=== PATIENT | male | born 1990 | race Caucasian/White ===

== ENCOUNTER 2017-12-20 05:30 | Emergency (ER) | payer MEDICAID, OTHER ==
[~2017-12-20] VITALS: Ht 190.5 cm; Wt 83.0 kg
[2017-12-20] MEDS ORDERED: HYDROcodone/APAP 7.5 MG/325 MG (LORTAB, LORCET PLUS) TABLET PO STA (05:43)
[2017-12-20] MEDS ORDERED: AUGMENTIN 875 MG TAB (AMOXICILLIN/CLAVULANATE) PO STA (05:43)
[2017-12-20] MEDS ORDERED: IBUPROFEN 800 MG (MOTRIN) TAB PO STA (05:43)
--- NOTE | 2017-12-20 05:49 | ED General ---
General Chief Complaint: Bite-Animal/Human/Insect Stated Complaint: DOG BITE Source of Information: Patient Exam Limitations: No Limitations History of Present Illness Date Seen by Provider: Dec 20, 2017 Time Seen by Provider: 05:38 Initial Comments Here with report of dog bite to the right arm and hand that occurred last night at his home in [place]. The dog was his dog and that dog is up-to-date on shots. States that it did not hurt significantly at that time so he went ahead and drove down here to his mother's. He will have this morning and it was hurting much worse. He did clean the wounds at the time of injury and cover them with Band-Aids. Reports that he has swelling to his hand and is worried that he has a fracture in the mid hand due to the swelling and the pain. Timing/Duration: Other (approximately 7-8 hours ago) Severity: Moderate Modifying Factors: improves with Immobilization; worse with Medication Associated Systoms: No Fever/Chills, No Rash Allergies and Home Medications Allergies Coded Allergies: tramadol (Verified Allergy, Unknown, 12/20/17) Home Medications Amoxicillin/Potassium Clav 1 Each Tablet, 1 EACH PO BID Prescribed by: EARLINE SENA on 12/20/17 0551 Hydrocodone Bit/Acetaminophen 1 Tab Tab, 1-2 EACH PO Q6H PRN for PAIN-MODERATE Prescribed by: EARLINE SENA on 12/20/17 0551 Patient Home Medication List Home Medication List Reviewed: Yes Review of Systems Constitutional: see HPI; No chills, No fever Respiratory: no symptoms reported Cardiovascular: no symptoms reported Musculoskeletal: see HPI, joint pain, joint swelling, muscle pain, muscle stiffness Skin: change in color, lesions, other (multiple puncture wounds and abrasions to the right hand and forearm on both dorsal and volar surface) Psychiatric/Neurological: No Symptoms Reported Past Kjcivmh-Ivyfxs-Ntlvji Hx Past Med/Social Hx: Reviewed Nursing Past Med/Soc Hx Patient Social History Alcohol Use: Occasionally Uses Recreational Drug Use: No Smoking Status: Current Everyday Smoker Type Used: Cigarettes Recent Foreign Travel: No Contact w/Someone Who Travel: No Past Medical History Surgeries: No Respiratory: No Cardiac: No Neurological: No Genitourinary: No Gastrointestinal: No Musculoskeletal: No Endocrine: No HEENT: No Family Medical History Reviewed Nursing Family Hx No Pertinent Family Hx Physical Exam Vital Signs Vital Signs - First Documented 12/20/17 05:35 Temp 97.8 Pulse 92 Resp 18 B/P (MAP) 126/78 (94) Pulse Ox 99 O2 Delivery Room Air Capillary Refill : General Appearance: WD/WN, Mild Distress (pain) Neck: Full Range of Motion, Non Tender Respiratory: Lungs Clear, Normal Breath Sounds Cardiovascular: Regular Rate, Rhythm, No Murmur Extremity: Swelling (right distal forearm and hand), Other (pain with range of motion of right hand and fingers with swelling noted to the right hand.) Neurologic/Psychiatric: Alert, Oriented x3, No Motor/Sensory Deficits Skin: Warm/Dry, Other (14 puncture wounds to the right forearm and hand on both dorsal and volar surface. Does not include fingers. Small laceration/ tear to the palm of the hand noted. Multiple abrasions/scratches noted in the area of concern.) Progress/Results/Core Measures Suspected Sepsis SIRS Temperature: Pulse: Respiratory Rate: Blood Pressure / Mean: Results/Orders My Orders Orders - EARLINE SENA MD Hand, Right, 3 Views (12/20/17 05:43) Hydrocodone/Apap 7.5/325 Tab (Lortab 7. (12/20/17 05:43) Ibuprofen Tablet (Motrin Tablet) (12/20/17 05:43) Amoxicillin/Clavulanate Tablet (Augmenti (12/20/17 05:43) Vital Signs/I&O 12/20/17 05:35 Temp 97.8 Pulse 92 Resp 18 B/P (MAP) 126/78 (94) Pulse Ox 99 O2 Delivery Room Air Capillary Refill : Progress Note : Progress Note Seen and evaluated. X-ray right hand ordered. Hydrocodone 7.5/325, ibuprofen 800 mg and Augmentin 875 mg tablets ordered. Monitor patient. 0610: No acute fractures. Discharged home with return precautions. Patient verbalize understanding instructions and agreement with plan. We did give Colles' splint for comfort. Wounds cleaned and dressed by nursing. Diagnostic Imaging Diagonstic Imaging: Xray Plain Films/CT/US/NM/MRI: hand Comments No acute fractures on 3 view x-ray of right hand Reviewed: Reviewed by Me Departure Impression Primary Impression: Dog bite Qualified Codes: W54.0XXA - Bitten by dog, initial encounter Disposition: 01 HOME, SELF-CARE Condition: Stable Departure-Patient Inst. Decision time for Depature: 05:49 Referrals: NO,LOCAL PHYSICIAN (PCP/Family) Primary Care Physician Patient Instructions: Animal Bites (DC) Add. Discharge Instructions: All discharge instructions reviewed with patient and/or family. Voiced understanding. Use antibiotic ointment and Band-Aid to wounds twice daily for the next several days and then as needed. Take medications as directed. You may take ibuprofen 800 mg every 8 hours as needed for pain. Follow-up with your Dr. in a few days for recheck. Return for worse pain, fever, vomiting, red streaks up the arm or hand, foul-smelling drainage or other concerns as needed. Scripts Hydrocodone Bit/Acetaminophen (Hydrocodone/Acetaminophen 5/325mg Tablet) 1 Tab Tab 1-2 EACH PO Q6H PRN for PAIN-MODERATE, #12 TAB 0 Refills Prov: EARLINE SENA MD 12/20/17 Amoxicillin/Potassium Clav (Augmentin 875-125 Tablet) 1 Each Tablet 1 EACH PO BID, #13 TAB 0 Refills Prov: EARLINE SENA MD 12/20/17 EARLINE SENA MD Dec 20, 2017 05:49
[2017-12-20] MEDS ORDERED: AMOX-358 PO (05:51)
[2017-12-20] MEDS ORDERED: ACHD5005 PO (05:51)
[2017-12-20 06:15] VITALS: BP 0/0
--- NOTE | 2017-12-20 07:31 | Diagnostic Imaging Report ---
INDICATION: Puncture wounds. Dog bite. FINDINGS: No retained opaque foreign body or dental fragment. There is no fracture. No acute periosteal reaction. IMPRESSION: No retained foreign body or fracture deformity identified. Dictated by: Dictated on workstation # [id number]
== END 2017-12-20 06:15 | disposition home or self-care (01) ==
LOC: EDUNIT# 05:30 → ER 05:34
DX: S41.151A Open bite of right upper arm, initial encounter (principal); S61.451A Open bite of right hand, initial encounter; F17.210 Nicotine dependence, cigarettes, uncomplicated; Z88.6 Allergy status to analgesic agent; W54.0XXA Bitten by dog, initial encounter
CPT/HCPCS: 73130